=== PATIENT | female | born 1995 | race Caucasian/White ===

== ENCOUNTER 2017-11-28 10:46 | Emergency (ER) | payer OTHER ==
[2017-11-28 11:58] LABS: BASOPHIL % 0.4 % (0-2); PLATELET COUNT 206 x10^3mcL (130-400)
[2017-11-28 11:59] LABS: RED CELL DISTRIBUTION WIDTH 14.7 % (11.5-14.5)
[2017-11-28 12:04] LABS: CALCIUM 8.6 mg/dL (8.5-10.1); CHLORIDE SERUM 103 mmol/L (98-107); CREATININE SERUM 0.5 mg/dL (0.6-1.0); GFR1 > 60 mL/min; GLUCOSE SERUM 79 mg/dL (74-106); POTASSIUM SERUM 3.9 mmol/L (3.5-5.1); SODIUM SERUM 140 mmol/L (136-145)
[2017-11-28 12:09] LABS: ALKALINE PHOSPHATASE 42 U/L (46-116); ALT/SGPT 19 U/L (14-59); AST/SGOT 17 U/L (15-37); BILIRUBIN TOTAL 0.2 mg/dL (0.20-1.00); TOTAL PROTEIN, SERUM 7.2 g/dL (6.4-8.2)
[2017-11-28 12:13] LABS: ALBUMIN 3.1 g/dL (3.4-5.0)
[2017-11-28 13:02] VITALS: BP 116/80
== END 2017-11-28 13:02 | disposition home or self-care (01) ==
LOC: ED 10:46
PROVIDERS: Emergency Medicine
DX: O21.0 Mild hyperemesis gravidarum (principal); Z3A.16 16 weeks gestation of pregnancy; G43.909 Migraine, unspecified, not intractable, without status migrainosus
CPT/HCPCS: J7030